=== PATIENT | male | born 1930 | race Caucasian/White ===

== ENCOUNTER → 2018-03-12 | Outpatient (CLI) | payer MEDICARE, BC ==
--- NOTE | 2018-03-12 15:41 | XR ---
EXAMINATION TYPE: XR chest 2V DATE OF EXAM: 03/12/2018 COMPARISON: Chest x-ray December 25, 2010. HISTORY: COPD per order. TECHNIQUE: Frontal and lateral views of the chest are obtained. FINDINGS: Chronic emphysematous change with left basilar opacity favoring scarring and/or atelectasi s is slightly more prominent versus prior. Right lung is clear. No pleural effusion or pneumothorax i s seen bilaterally.. The cardiac silhouette size is within upper limits of normal with ectatic and a therosclerotic thoracic aorta. The osseous structures are intact. IMPRESSION: Chronic emphysematous changes with more prominent left basilar scarring and/or atelectas is.
== END ==
LOC: RADXRMAIN 15:21
PROVIDERS: ATTEND Family Medicine
DX: J43.9 Emphysema, unspecified (principal)
CPT/HCPCS: 71046

== ENCOUNTER 2018-12-05 23:43 | Emergency (ER) | payer MEDICARE, BC ==
[2018-12-06 00:20] VITALS: TEMP 98.1
--- NOTE | 2018-12-06 01:58 | CT ---
EXAM: CT Head Without Intravenous Contrast CLINICAL HISTORY: ITS.REASON CT Reason: Pain TECHNIQUE: Axial computed tomography images of the head/brain without intravenous contrast. This CT exam was performed using one or more of the following dose reduction techniques: automated exposure control, adjustment of the mA and/or kV according to patient size, and/or use of iterative reconstruction technique. COMPARISON: No relevant prior studies available. FINDINGS: Brain: No hemorrhage. No edema. Ventricles: Unremarkable. No ventriculomegaly. Bones/joints: No acute fracture. Soft tissues: Unremarkable. Sinuses: No fluid levels. Mastoid air cells: Unremarkable as visualized. No mastoid effusion. IMPRESSION: No acute intracranial findings EXAM: CT Cervical Spine Without Intravenous Contrast CLINICAL HISTORY: ITS.REASON CT Reason: Pain TECHNIQUE: Axial computed tomography images of the cervical spine without intravenous contrast. This CT exam was performed using one or more of the following dose reduction techniques: automated exposure control, adjustment of the mA and/or kV according to patient size, and/or use of iterative reconstruction technique. COMPARISON: No relevant prior studies available. FINDINGS: Vertebrae: No acute fracture. Discs/spinal canal/neural foramina: No suspicious findings. Soft tissues: Unremarkable. IMPRESSION: No acute findings.
--- NOTE | 2018-12-06 02:04 | XR ---
EXAM: XR Chest, 2 Views CLINICAL HISTORY: ITS.REASON XR Reason: Pain TECHNIQUE: Frontal and lateral views of the chest. COMPARISON: No relevant prior studies available. FINDINGS: Lungs: Unremarkable. No consolidation. Pleural space: Unremarkable. No pneumothorax. Heart: No suspicious enlargement. Mediastinum: Unremarkable. Bones/joints: No acute fracture. IMPRESSION: No acute findings.
--- NOTE | 2018-12-06 02:04 | XR ---
EXAM: XR Lumbar Spine, 2 or 3 Views CLINICAL HISTORY: ITS.REASON XR Reason: Pain TECHNIQUE: Frontal and lateral views of the lumbar spine. COMPARISON: No relevant prior studies available. FINDINGS: Vertebrae: Unremarkable. No acute fracture. Normal alignment. Disc spaces: No suspicious findings. No significant narrowing. Soft tissues: Unremarkable. IMPRESSION: Normal lumbar spine x-rays.
--- NOTE | 2018-12-06 03:09 | ED ---
General Adult HPI - General Source: EMS, RN notes reviewed, old records reviewed Mode of arrival: EMS Limitations: no limitations <Daquan Knox - Last Filed: 12/06/18 14:28> <Carrie Cardozo - Last Filed: 12/06/18 21:23> - General Chief complaint: Fall Stated complaint: Fall, ETOH Time Seen by Provider: 12/06/18 01:05 - History of Present Illness Initial comments: 87-year-old male patient past medical history of hypertension, hyperlipidemia, seizure disorder presents to ED after a fall. History is partially obtained by over the phone. Patient was reportedly drinking excess, tripped, fell forward hitting his head on table. No loss of consciousness. EMS was called patient's transported to Hospital. At time of that evaluation patient asymptomatic. Denies any headache, pain in neck. Denies any abdominal pain, chest pain, shortness of breath. Systemic: Pt denies fatigue, fever/chills, rash. Pt denies weakness, night sweats, weight loss. Neuro: Pt denies headache, visual disturbances, syncope or pre-syncope. HEENT: Pt denies ocular discharge or irritation, otalgia, rhinorrhea, pharyngi tis or notable lymphadenopathy. Cardiopulmonary: Pt denies chest pain, SOB, heart palpitations, dyspnea on exertion. Abdominal/GI: Pt denies abdominal pain, n/v/d. : Pt denies dysuria, burning w/ urination, frequency/urgency. Denies new onset urinary or bowel incontinence. MSK: Pt denies myalgia, loss of strength or function in extremities. Neuro: Pt denies new onset weakness, paresthesias. (Daquan Knox) - Related Data Home Medications Medication Instructions Recorded Confirmed Metoprolol Succinate [Toprol XL] 100 mg PO DAILY 12/06/13 02/14/16 Simvastatin [Zocor] 80 mg PO HS 12/06/13 02/14/16 Tamsulosin [Flomax] 0.4 mg PO DAILY 12/06/13 02/14/16 metFORMIN HCL [Glucophage] 500 mg PO TID 12/06/13 02/14/16 Aspirin [Adult Low Dose Aspirin EC] 81 mg PO DAILY 02/02/16 02/14/16 B Complex-Vit C-Vit E-Zinc [Z-Bec] 1 tab PO DAILY 02/02/16 02/14/16 Folic Acid 0.4 mg PO DAILY 02/02/16 02/14/16 Previous Rx's Medication Instructions Recorded levETIRAcetam [Keppra] 500 mg PO Q12HR #60 tab 12/06/13 Allergies Allergy/AdvReac Type Severity Reaction Status Date / Time No Known Allergies Allergy Verified 02/14/16 12:31 Review of Systems ROS Other: All systems not noted in ROS Statement are negative. <Daquan Knox - Last Filed: 12/06/18 14:28> ROS Other: All systems not noted in ROS Statement are negative. <Carrie Cardozo - Last Filed: 12/06/18 21:23> ROS Statement: Those systems with pertinent positive or pertinent negative responses have been documented in the HPI. Past Medical History Past Medical History: Diabetes Mellitus, Hyperlipidemia, Hypertension, Seizure Disorder History of Any Multi-Drug Resistant Organisms: None Reported Past Surgical History: Hernia Repair Additional Past Surgical History / Comment(s): lung surgery-partial lung removal 52 years ago. thyroid tumour removed- Past Anesthesia/Blood Transfusion Reactions: No Reported Reaction Past Psychological History: No Psychological Hx Reported Smoking Status: Never smoker Past Alcohol Use History: Daily Past Drug Use History: None Reported <Daquan Knox - Last Filed: 12/06/18 14:28> General Exam Limitations: no limitations <Daquan Knox - Last Filed: 12/06/18 14:28> - General Exam Comments Initial Comments: Constitutional: NAD, AOX3, Pt has pleasant affect. HEENT: NC/AT, trachea midline, neck supple, no lymphadenopathy. Posterior pharynx non erythematous, without exudates. External ears appear normal, without discharge. Mucous membranes moist. Eyes PERRLA, EOM intact. There is no scleral icterus. No pallor noted. Cardiopulmonary: RRR, no murmurs, rubs or gallops, no JVD noted. Lungs CTAB in anterior and posterior grande. No peripheral edema. Abdominal exam: Abdomen soft and non-distended. Abdomen non-tender to palpation in all 4 quadrants. Bowel sounds active in LLQ. No hepatosplenomegaly. No ecchymosis Neuro: CN II-XII intact. No nuchal rigidity. No raccon eyes, no mandujano sign, no hemotympanum. No cervical spinal tenderness. MSK: No posterior calf tenderness bilaterally, homans sign negative bilaterally. Posterior tibialis and radial pulse +2 bilaterally. Sensation intact in upper and lower extremities. Full active ROM in upper and lower extremities, 5/5 stregnth. (Daquan Knox) Course Vital Signs 12/06/18 12/06/18 00:15 04:36 Temperature 98.1 F Pulse Rate 63 64 Respiratory 16 14 Rate Blood Pressure 117/68 124/64 O2 Sat by Pulse 96 96 Oximetry Medical Decision Making - Lab Data Result diagrams: 12/06/18 02:54 12/06/18 02:54 <Daquan Knox - Last Filed: 12/06/18 14:28> - Lab Data Result diagrams: 12/06/18 02:54 12/06/18 02:54 <Carrie Cardozo - Last Filed: 12/06/18 21:23> - Medical Decision Making 87-year-old male patient past medical history of hypertension, hyperlipidemia, seizure disorder presents to ED after a fall. History is partially obtained by over the phone. Patient was reportedly drinking excess, tripped, fell forward hitting his head on table. No loss of consciousness. EMS was called patient's transported to Hospital. At time of that evaluation patient asymptomatic. Denies any headache, pain in neck. Denies any abdominal pain, chest pain, shortness of breath. Patient vital signs stable, afebrile. Physical exam did not display acute pathology. Chest x-ray and lumbar films did not display acute pathology. CT of brain and cervical spine did not display acute pathology. Laboratory investigations revealed nonimpressive CBC, CMP. Serum alcohol 206. Patient is asymptomatic. Patient will be discharged when sober . Case discussed and signed out to attending physician Dr. Cardozo. (Daquan Knox) I was available for consultation in the emergency department. The history and physical exam were done by the midlevel provider. I was consulted for this patient's care. I reviewed the case with the midlevel provider and based on their presentation of the patient, I agree with the assessment, medical decision making and plan of care as documented. Patient was determined to be sober in the morning his was contacted and stated that she would be here to pick him up. Patient was ambulatory with no complaints he was able to walk to the bathroom multiple times without assistance. Chart was dictated using [employer] dictation software. Attempts were made to correct any dictation errors however some typographical errors may persist. (Carrie Cardozo) - Lab Data Lab Results 12/06/18 12/06/18 Range/Units 02:54 02:54 WBC 6.3 (3.8-10.6) k/uL RBC 4.50 (4.30-5.90) m/uL Hgb 14.1 (13.0-17.5) gm/dL Hct 43.4 (39.0-53.0) % MCV 96.5 (80.0-100.0) fL MCH 31.3 (25.0-35.0) pg MCHC 32.4 (31.0-37.0) g/dL RDW 13.5 (11.5-15.5) % Plt Count 202 (150-450) k/uL Neutrophils % 81 % Lymphocytes % 13 % Monocytes % 3 % Eosinophils % 2 % Basophils % 1 % Neutrophils # 5.1 (1.3-7.7) k/uL Lymphocytes # 0.8 L (1.0-4.8) k/uL Monocytes # 0.2 (0-1.0) k/uL Eosinophils # 0.1 (0-0.7) k/uL Basophils # 0.1 (0-0.2) k/uL Sodium 139 (137-145) mmol/L Potassium 4.9 (3.5-5.1) mmol/L Chloride 106 (98-107) mmol/L Carbon Dioxide 22 (22-30) mmol/L Anion Gap 11 mmol/L BUN 24 H (9-20) mg/dL Creatinine 1.08 (0.66-1.25) mg/dL Est GFR (CKD-EPI)AfAm 71 (>60 ml/min/1.73 sqM) Est GFR (CKD-EPI)NonAf 62 (>60 ml/min/1.73 sqM) Glucose 122 H (74-99) mg/dL Calcium 9.7 (8.4-10.2) mg/dL Total Bilirubin 0.4 (0.2-1.3) mg/dL AST 28 (17-59) U/L ALT 19 L (21-72) U/L Alkaline Phosphatase 66 (38-126) U/L Total Protein 6.9 (6.3-8.2) g/dL Albumin 4.1 (3.5-5.0) g/dL Serum Alcohol 206 H* mg/dL Disposition Is patient prescribed a controlled substance at d/c from ED?: No <Daquan Knox - Last Filed: 12/06/18 14:28> Is patient prescribed a controlled substance at d/c from ED?: No <Carrie Cardozo - Last Filed: 12/06/18 21:23> Clinical Impression: Fall Disposition: HOME SELF-CARE Condition: Stable Instructions (If sedation given, give patient instructions): Fall Prevention for Older Adults (ED) Additional Instructions: Patient to adhere to previously discussed treatment plan and will take medication(s) as directed. Patient to follow up with PCP in 1-2 days. Patient to return to ED if symptoms do not improve. Follow-up with primary care provider in 1-2 days. Return to ER if condition worsens in any way. Referrals: None,Stated [Primary Care Provider] - 1-2 days
[2018-12-06 03:10] LABS: Basophils # (A) 0.1 k/uL (0-0.2); Basophils % (A) 1 %; Eosinophils # (A) 0.1 k/uL (0-0.7); Eosinophils % (A) 2 %; HCT 43.4 % (39.0-53.0); HGB 14.1 gm/dL (13.0-17.5); Lymphocytes # (A) 0.8 k/uL (1.0-4.8); Lymphocytes % (A) 13 %; MCH 31.3 pg (25.0-35.0); MCHC 32.4 g/dL (31.0-37.0); MCV 96.5 fL (80.0-100.0); Mean Platelet Volume 8.6; Monocytes # (A) 0.2 k/uL (0-1.0); Monocytes % (A) 3 %; Neutrophils # (A) 5.1 k/uL (1.3-7.7); Neutrophils % (A) 81 %; Platelet Count 202 k/uL (150-450); RDW 13.5 % (11.5-15.5); WBC 6.3 k/uL (3.8-10.6)
[2018-12-06 03:16] LABS: Albumin 4.1 g/dL (3.5-5.0); Calcium 9.7 mg/dL (8.4-10.2); Potassium 4.9 mmol/L (3.5-5.1); Total Bilirubin 0.4 mg/dL (0.2-1.3); Total Protein 6.9 g/dL (6.3-8.2)
[2018-12-06 04:38] VITALS: BP 124/64; PULSE 64; RESP 14
== END 2018-12-06 09:33 | disposition home or self-care (01) ==
LOC: EC 23:43
DX: Z04.3 Encounter for examination and observation following other accident (principal); I10 Essential (primary) hypertension; E78.5 Hyperlipidemia, unspecified; E11.9 Type 2 diabetes mellitus without complications; Z79.82 Long term (current) use of aspirin; Z79.84 Long term (current) use of oral hypoglycemic drugs; Z79.899 Other long term (current) drug therapy; W18.09XA Striking against other object with subsequent fall, initial encounter
CPT/HCPCS: 36415; 80053; 85025; 72100; 71046; 72125; 70450; 99285; G0480; 80320